=== PATIENT | male | born 1955 | race Asian ===

== ENCOUNTER 2018-06-03 15:31 | Emergency (ER) | payer OTHER ==
[~2018-06-03] VITALS: Ht 180.3 cm; Wt 92.1 kg
[2018-06-03 15:49] VITALS: TEMP 97.9
[2018-06-03 16:17] LABS: PLATELET COUNT 361 K/uL (142-355)
[2018-06-03 16:33] VITALS: BP 163/95
[2018-06-03 16:48] LABS: POTASSIUM 4.2 mmol/L (3.6-5.2)
[2018-06-03] MEDS ORDERED: TYLENOL325 MG PO (18:28)
[2018-06-03] MEDS ORDERED: BAYER ADVANCED325 MG PO (18:30)
[2018-06-03] MEDS ORDERED: LISI5TAB10 PO (18:30)
[2018-06-03] MEDS ORDERED: LIPITOR80 MG PO (18:31)
[2018-06-03] MEDS ORDERED: ROWEEPRA1000 MG PO (18:32)
[2018-06-03] MEDS ORDERED: METO50TA27 PO (18:34)
== END 2018-06-03 17:50 | disposition other institution (70) ==
LOC: ED 15:31
PROVIDERS: Emergency Medicine
DX: F28 Other psychotic disorder not due to a substance or known physiological condition (principal); Z04.6 Encounter for general psychiatric examination, requested by authority
CPT/HCPCS: 80053; 85027; 93005; 99285